=== PATIENT | female | born 1970 | race Caucasian/White ===

== ENCOUNTER → 2017-03-19 | Day surgery (SDC) | payer BC, OTHER ==
--- NOTE | 2017-03-20 05:28 | WWPCN ---
DATE OF SERVICE: 03/19/2017 PREPROCEDURE DIAGNOSIS: Dysfunctional uterine bleeding. POSTPROCEDURE DIAGNOSIS: Dysfunctional uterine bleeding. PROCEDURE: Endometrial biopsy. SURGEON: Dr. Ash. ANESTHESIA: None. BRIEF DESCRIPTION OF THE FINDINGS: The uterus is enlarged approximately 8-week size and consistent with a fibroid uterus. The uterus sounded to 10 cm. Moderate amount of tissue was obtained. BRIEF HISTORY AND INDICATIONS: This is a 46-year-old G2, P2 whose is status post vasectomy. Periods have become somewhat irregular and missed periods in September and November. She started her period on 03/01/17 which has gone on for about 2-1/2 weeks to the present day. It has been variable in flow and has been fairly light recently. The endometrial biopsy procedure was explained to the patient including risks and possible complications and all of her questions were answered. PROCEDURE: The patient was placed in the lithotomy position. Bimanual examination revealed an 8-week size firm, slightly irregular uterus consistent with fibroid uterus. The uterus was nontender and there was no cervical motion tenderness. Speculum was inserted into the vagina. The cervix and vagina were prepped with Betadine. An Allis clamp was used to grasp the anterior lip of the cervix and the endometrial biopsy instrument was placed to the fundus without difficulty. The uterus measured 10 cm. Negative pressure was applied and a back and forth rotating motion was used and a moderate amount of blood and tissue was obtained and sent for pathological examination. The instruments were removed. The patient tolerated the procedure well. The estimated blood loss for the procedure was 1 mL. There were no complications. Specimen sent included endometrial sampling. The post procedure blood pressure was 156/76 with a pulse of 73. The patient was feeling fine and discharge instructions were given to the patient. The patient was also given a prescription for Provera 10 mg and she will take 1 p.o. daily on days one through 12 of the month starting tomorrow. She will continue to keep a menstrual calendar and she will call if she has any problems.
== END ==
LOC: WWCWWP 11:51
PROVIDERS: ATTEND Obstetrics & Gynecology
DX: N93.8 Other specified abnormal uterine and vaginal bleeding (principal); N85.00 Endometrial hyperplasia, unspecified
CPT/HCPCS: 88305

== ENCOUNTER → 2017-10-01 | Outpatient (CLI) | payer BC ==
--- NOTE | 2017-10-01 09:51 | WWHP ---
[facility] - HISTORY AND PHYSICAL DATE OF SERVICE: 10/01/2017. CHIEF COMPLAINT: The patient is here for her routine gynecologic exam and mammogram. HPI: This is a 47-year-old, G2, P2, with an LMP of 09/27/2017. The patient's is status post vasectomy. The patient did have dysfunctional uterine bleeding earlier this year with a menstrual period that lasted nearly 3 weeks in February. She underwent an endometrial biopsy on 03/19/17, which showed disordered proliferative endometrium. She was started on cyclic Provera and has had fairly regular monthly periods lasting 4 to 7 days. She did not have a withdrawal bleed last month but did have a period this month. She would like to have a trial off of the cyclic Provera after she completes her prescription in 2 months. She has noticed occasional hot flashes over the last couple of months, but these have been infrequent. PAST MEDICAL HISTORY: Seasonal allergies. MEDICATIONS: 1. Multivitamin daily. 2. Provera 10 mg, days 1 through 12 of the month. 3. Cetirizine 10 mg daily. 4. Abcuts 1 daily for weight loss. ALLERGIES: PENICILLIN and LATEX. PAST SURGICAL HISTORY: Eye surgery in the past. 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 Hysteroscopy, D&C, and myomectomy in 2010. 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 SOCIAL HISTORY: She denies tobacco and drug use and has 0 to 2 alcohol-containing drinks per month. 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 FAMILY HISTORY: Mother had breast cancer. Father had diabetes. REVIEW OF SYSTEMS: She has lost about 16 pounds over the last year and this has been with diet and exercise. She is trying to lose weight for her her daughter's upcoming wedding next summer. She denies respiratory, cardiac or GI problems. PHYSICAL EXAM: Blood pressure 139/76, height 5 feet 7 inches, weight 173 pounds. BMI at 27. Temperature 97.2, pulse 79. This is a well-developed, well-nourished, white female, who is alert and oriented x3, in no acute distress. HEENT is within normal limits. NECK: Supple without mass or thyromegaly. CHEST AND LUNGS: Clear to auscultation. HEART: Regular rate and rhythm. Breasts are without mass or discharge. Axillary exam is negative for adenopathy. Back negative for CVA tenderness. ABDOMEN: Soft, nontender without palpable masses. PELVIC EXAM: External genitalia appears normal. The cervix and vagina reveal menstrual- type blood. Cervix is multiparous and normal-appearing. The uterus is approximately 8 week's size, firm and slightly irregular, consistent with a fibroid uterus. This is nontender. There are no palpable adnexal masses or tenderness. Rectal exam was refused by the patient. EXTREMITIES: Nontender. IMPRESSION: 1. A 47-year-old female with history of dysfunctional uterine bleeding, improved with cyclic progestin therapy. 2. Known multi-fibroid uterus, approximately 8 week's size. PLAN: 1. Pap smear was deferred since she had a normal one last year. 2. Self breast examination was discussed. 3. Mammogram will be done today. 4. We have had a long discussion regarding her history of dysfunctional uterine bleeding. She will continue the cyclic Provera for 2 more months and at that time she will have a trial off. She will continue to keep a menstrual calendar and call if she is having menstrual problems. 5. She will return in 1 year. MMODL / IJN: [id number] /
--- NOTE | 2017-10-02 12:33 | MM ---
Reason for exam: screening (asymptomatic). Last mammogram was performed 1 year and 1 month ago. History: Family history of breast cancer in mother at age 53. Taking progesterone for 5 months. Physical Findings: A clinical breast exam by your physician is recommended on an annual basis and results should be correlated with mammographic findings. MG Screening Mammo w CAD Bilateral CC and MLO view(s) were taken. Prior study comparison: August 27, 2016, bilateral MG screening mammo w CAD. August 22, 2015, bilateral MG screening mammo w CAD. The breast tissue is heterogeneously dense. This may lower the sensitivity of mammography. Finding: There is suspicious, equal, spiculated architectural distortion located 9 cm from the nipple in the upper quadrant, posterior position of the right breast on MLO view. New finding since August 27, 2016 and August 22, 2015. ASSESSMENT: Incomplete: need additional imaging evaluation, BI-RAD 0 RECOMMENDATION: Special view mammogram of the right breast. If lesion persists on supplemental views, image directed ultrasound is recommended. [facility] will attempt to contact patient to return for supplemental views and ultrasound if indicated.
== END | disposition home or self-care (01) ==
LOC: WWCWWP 08:29
PROVIDERS: ATTEND Obstetrics & Gynecology
DX: Z12.31 Encounter for screening mammogram for malignant neoplasm of breast (principal)

== ENCOUNTER → 2017-10-21 | Outpatient (CLI) | payer BC ==
--- NOTE | 2017-10-21 09:23 | MM ---
Reason for exam: additional evaluation requested from abnormal screening. Last mammogram was performed 1 month ago. History: Family history of breast cancer in mother at age 53. Taking progesterone for 5 months. Physical Findings: Nurse did not find any significant physical abnormalities on exam. MG Work Up Mamm w CAD RT Spot compression MLO and ML view(s) were taken of the right breast. Prior study comparison: October 01, 2017, bilateral MG screening mammo w CAD. August 27, 2016, bilateral MG screening mammo w CAD. The breast tissue is heterogeneously dense. This may lower the sensitivity of mammography. No suspicious abnormality in the right breast. The previously seen right superior breast posterior depth asymmetry resolves on spot compression view and appears as fibroglandular tissue. These results were verbally communicated with the patient and result sheet given to the patient on 10/21/17. ASSESSMENT: Negative, BI-RAD 1 RECOMMENDATION: Return to routine screening mammogram schedule for both breasts.
== END | disposition home or self-care (01) ==
LOC: RADMAMWWP 08:39
PROVIDERS: ATTEND Obstetrics & Gynecology
DX: R92.8 Other abnormal and inconclusive findings on diagnostic imaging of breast (principal)
CPT/HCPCS: 77065

== ENCOUNTER → 2018-10-27 | Outpatient (CLI) | payer BC ==
[2018-10-27 09:24] VITALS: BP 132/71; PULSE 78; RESP 18; TEMP 97.7; BMI 29.0
--- NOTE | 2018-10-27 10:13 | P.HPOB ---
History of Present Illness H&P Date: 10/27/18 Chief Complaint: The patient is here for her routine gynecologic exam and mammogram. This is a 48-year-old with an LMP of 10/17/2018. The patient states or periods have become less frequent. She did use cyclic Provera up until about 1 year ago. Menses have been about every one to 3 months and are now protective officer and shorter. She started having hot flashes in March 2018. They were fairly severe and are now improving. She is without gynecologic complaints. Review of Systems The patient has gained 7 pounds over the last year. She denies respiratory, cardiac, or G.I. problems. Past Medical History Past Medical History: No Reported History Additional Past Medical History / Comment(s): Seasonal allergies. 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 She has a history of uterine fibroids and his status post myomectomy in 2010. 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 - Past Family History Mother Family Medical History: Cancer (Breast cancer) Father Family Medical History: Diabetes Mellitus Medications and Allergies Home Medications Medication Instructions Recorded Confirmed Type Cetirizine HCl [Zyrtec] 10 mg PO DAILY 10/27/18 10/27/18 History Lysine [l-Lysine] 500 mg PO DAILY 10/27/18 10/27/18 History Multivitamins, Thera [Multivitamin 1 tab PO DAILY 10/27/18 10/27/18 History (formulary)] Allergies Allergy/AdvReac Type Severity Reaction Status Date / Time latex Allergy Rash/Hives Verified 10/27/18 09:28 Penicillins Allergy Unknown Verified 10/27/18 09:28 Childhood Exam Vital Signs Temp Pulse Resp BP Pulse Ox 10/27/18 09:13 97.7 F 78 18 132/71 98 Intake and Output 10/26/18 10/27/18 10/27/18 22:59 06:59 14:59 Other: Weight 81.647 kg Height 5'6", weight 180 pounds, BMI 29.1. This is a well-developed well-nourished white female who is alert and oriented times 3 in no acute distress. HEENT: Within normal limits. NECK: Supple without mass or thyromegaly. CHEST AND LUNGS: Clear to auscultation. HEART: Regular rate and rhythm. BREASTS: Are without mass or discharge. There is an area on the left breast at the 7 o'clock position with skin change similar to a birthmark that the patient states she has had since age 6. It measures approximately 2 cm in diameter and is flat. AXILLARY EXAM: Negative for adenopathy. BACK: Negative for CVA tenderness. ABDOMEN: Soft, nontender, without palpable masses. PELVIC EXAM: Normal external genitalia. Cervix and vagina appear normal. Cervix is multiparous. There is no unusual discharge. There is no evidence of prolapse. The uterus is midposition, multiparous, nongravid size and nontender. There are no palpable adnexal masses or tenderness. RECTAL EXAM: refused by the patient. EXTREMITIES: Nontender. IMPRESSION: 1. 48-year-old perimenopausal female with oligomenorrhea and vasomotor symptoms. 2. Normal gynecologic exam. PLAN: 1. Pap smear was performed. 2. Self breast awareness was discussed with the patient. 3. Screening mammogram will be done today. 4. Osteoporosis prevention was discussed. I have stressed the importance of adequate calcium, vitamin D and regular exercise. Recommended amounts of calcium and vitamin D were also discussed. 5. She will continue to keep a menstrual calendar. 6. She will return in one year.
--- NOTE | 2018-10-31 07:42 | MM ---
Reason for exam: screening (asymptomatic). Last mammogram was performed 1 year ago. History: Family history of breast cancer in mother at age 53. Taking progesterone for 5 months. MG Screening Mammo w CAD Bilateral CC and MLO view(s) were taken. Prior study comparison: October 21, 2017, right breast MG work up mamm w CAD RT. October 01, 2017, bilateral MG screening mammo w CAD. The breast tissue is heterogeneously dense. This may lower the sensitivity of mammography. Asymmetric breast tissue right stable from prior studies. No discrete abnormality. ASSESSMENT: Negative, BI-RAD 1 RECOMMENDATION: Routine screening mammogram of both breasts in 1 year.
== END | disposition home or self-care (01) ==
LOC: WWCWWP 09:08
PROVIDERS: ATTEND Obstetrics & Gynecology
DX: Z12.31 Encounter for screening mammogram for malignant neoplasm of breast (principal)
CPT/HCPCS: 77067

== ENCOUNTER → 2021-01-23 | Outpatient (CLI) | payer BC ==
[2021-01-23 16:12] VITALS: BP 147/77; PULSE 76; RESP 18; TEMP 98.4
--- NOTE | 2021-01-23 17:54 | P.HPOB ---
History of Present Illness H&P Date: 01/23/21 Chief Complaint: The patient is here for her routine gynecologic exam. This is a 50-year-old with an LMP of 11/21/2020. She has had only 3 menstrual periods over the past year and she had gone about 9 months without a menstrual period prior to her LMP. Her LMP was short lasting only 3 days. She states she is in the process of filing for divorce because of this spousal infidelity. She had a Pap smear in 2018 that was positive for high-risk HPV that led to a colposcopy which revealed high-grade changes and she did have a LEEP at that time. She believes the spousal infidelity probably started around that time. She states she caught her with an another woman in September 2020. She states she recently has become sexually active with another man during the past 2 months. They have mostly had non-penetration sexual activity, but have infrequently had sexual intercourse where withdrawal was used. She states she has a latex sensitivity and for this reason did not use condoms. She is requesting STD testing. She denies vaginal discharge or genita l lesions. She has had occasional mild hot flashes. Review of Systems The patient's weight has been stable over the last year. She denies respiratory, cardiac, or G.I. problems. Past Medical History Past Medical History: No Reported History Additional Past Medical History / Comment(s): Seasonal allergies. 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 She has a history of uterine fibroids and his status post myomectomy in 2010. 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 Past Anesthesia/Blood Transfusion Reactions: No Reported Reaction Past Psychological History: Anxiety, Depression Additional Psychological History / Comment(s): no treatment Smoking Status: Never smoker Past Alcohol Use History: Occasional (0-2 every 3 months) Past Drug Use History: None Reported Additional History: She is currently filing for divorce and has had a new boyfriend since November 2020. 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 - Past Family History Mother Family Medical History: Cancer Additional Family Medical History / Comment(s): Breast cancer. Father Family Medical History: Diabetes Mellitus Medications and Allergies Home Medications Medication Instructions Recorded Confirmed Type Cetirizine HCl [Zyrtec] 10 mg PO DAILY 10/27/18 01/23/21 History Lysine [l-Lysine] 500 mg PO DAILY 10/27/18 01/23/21 History Multivitamins, Thera [Multivitamin 1 tab PO DAILY 10/27/18 01/23/21 History (formulary)] Calcium Carbonate [Calcium] 600 mg PO DAILY 01/23/21 01/23/21 History Allergies Allergy/AdvReac Type Severity Reaction Status Date / Time latex Allergy Rash/Hives Verified 01/23/21 16:07 Penicillins Allergy Unknown Verified 01/23/21 16:07 Childhood Exam Vital Signs Temp Pulse Resp BP Pulse Ox 01/23/21 16:09 98.4 F 76 18 147/77 100 Intake and Output 01/23/21 01/23/21 01/23/21 06:59 14:59 22:59 Other: Weight 81.647 kg Height 5 feet 6 inches, weight 180 pounds, BMI 29.1. This is a well-developed well-nourished white female who is alert and oriented times 3 in no acute distress. HEENT: Within normal limits. NECK: Supple without mass or thyromegaly. CHEST AND LUNGS: Clear to auscultation. HEART: Regular rate and rhythm. BREASTS: Are without mass or discharge. AXILLARY EXAM: Negative for adenopathy. BACK: Negative for CVA tenderness. ABDOMEN: Soft, nontender, without palpable masses. PELVIC EXAM: Normal external genitalia with minimal atrophy. Cervix and vagina appear normal with minimal atrophy. The cervix is without lesions and is multiparous in size with a fairly small opening consistent with a previous LEEP procedure. There is no unusual discharge. There is no evidence of prolapse. The uterus is slightly retroverted, nongravid size and nontender. There are no palpable adnexal masses or tenderness. RECTAL EXAM: Rectal exam was refused by the patient. EXTREMITIES: Nontender. IMPRESSION: 1. 50-year-old perimenopausal female with oligomenorrhea and occasional mild vasomotor symptoms with normal gynecologic exam. 2. Status post LEEP procedure for high-grade JOSE LUIS in 2019. Her most recent Pap smear on 08/25/2019 showed ASCUS. 3. Spousal infidelity and now the patient is filing for divorce and has a new sexual partner. 4. Elevated blood pressure. PLAN: 1. Pap smear cotest was performed. 2. Self breast awareness was discussed with the patient. 3. Screening mammogram is due and she has an appointment next month for this. The order slip will be mailed to the patient for this. 4. Trichomonas Ag testing was obtained from the vagina. GC and Chlamydia testing was obtained from the cervix. The order slip for STD blood testing was given to the patient and this includes HIV, RPR, hepatitis B surface antigen, and hepatitis C antibody. 5. STD prevention was discussed with the patient. I have stressed the importance of limiting sexual partners and I have recommended that she use condoms if she is sexually active. We have discussed the availability of nonlatex condoms. 6. She understands there is a risk of her becoming if she still has menstrual periods and for this reason I have recommended that she use condoms. 7. She will continue to keep a menstrual calendar and call if she is having menstrual problems. 8. I have recommended that she check her own blood pressure at home on a regular basis and follow up with her PCP for blood pressure elevations. 9. She was advised to return in one year for her annual well woman exam and as needed.
--- NOTE | 2021-02-06 18:19 | P.PN ---
Progress Note - Text Progress Note Date: 02/06/21 OUTPATIENT FOLLOW-UP NOTE TEST(S)/RESULTS: Test results from 01/23/2021 include negative Pap smear and negative high-risk HPV testing. The Pap smear showed a shift in the vaginal michelle suggestive of bacterial vaginosis. Other STD testing included negative testing for Trichomonas, gonorrhea, chlamydia, HIV, RPR, hepatitis B surface antigen and hepatitis C antibody. METHOD OF NOTIFICATION: She was notified by phone. PATIENT COMMENTS: The patient denies BV symptoms such as vaginal discharge or odor. DIAGNOSIS: Negative Pap smear cotest. Negative STD screening as above. No symptoms for bacterial vaginosis. DISCUSSION: I have used the ASCCP algorithm to determine the next step in cervical surveillance and screening. Recommendation was not available since the indicated that colposcopy was indicated after the post-LEEP Pap smear which showed ASCUS. This was not done by Dr. Vasquez after he did the post LEEP procedure Pap smear in 2019. Given the length of time that has passed and the negative Pap smear cotest, I do not feel colposcopy is indicated at this time. We will plan on repeating the Pap smear cotest again in approximately 2 years. If that is normal, we'll consider resuming routine screening. PLAN: As above. The patient was also instructed to call if she develops any BV symptoms such as vaginal discharge or odor. She was advised to return in one year for her annual well woman exam.
== END | disposition home or self-care (01) ==
LOC: WWCWWP 15:36
PROVIDERS: ATTEND Obstetrics & Gynecology
DX: N91.5 Oligomenorrhea, unspecified (principal); F32.9 Major depressive disorder, single episode, unspecified; R03.0 Elevated blood-pressure reading, without diagnosis of hypertension; Z98.890 Other specified postprocedural states; Z53.9 Procedure and treatment not carried out, unspecified reason

== ENCOUNTER → 2021-01-26 | Outpatient (CLI) | payer BC ==
[2021-01-26 14:39] LABS: HIV 2 AB Non-Reactive (Non-Reactive); HIV AB P24 Non-Reactive (Non-Reactive); HIV P24 AG Non-Reactive (Non-Reactive)
[2021-01-26 15:29] LABS: Hepatitis B Surface Antigen Non-Reactive (Non-Reactive); Hepatitis C IgG Antibody Non-Reactive (Non-Reactive)
== END | disposition home or self-care (01) ==
LOC: LABWHC1 07:30
PROVIDERS: ATTEND Obstetrics & Gynecology
DX: Z11.3 Encounter for screening for infections with a predominantly sexual mode of transmission (principal)
CPT/HCPCS: 36415; 86780; 86803; 87340; 87390

== ENCOUNTER → 2021-02-27 | Outpatient (CLI) | payer BC ==
--- NOTE | 2021-02-28 13:32 | MM ---
Reason for exam: screening (asymptomatic). Last mammogram was performed 2 years and 4 months ago. History: Family history of breast cancer in mother at age 53. Took progesterone for 5 months. Physical Findings: A clinical breast exam by your physician is recommended on an annual basis and results should be correlated with mammographic findings. MG Screening Mammo w CAD Bilateral CC and MLO view(s) were taken. Prior study comparison: October 27, 2018, bilateral MG screening mammo w CAD. October 21, 2017, right breast MG work up mamm w CAD RT. The breast tissue is heterogeneously dense. This may lower the sensitivity of mammography. There is no discrete abnormality. ASSESSMENT: Negative, BI-RAD 1 RECOMMENDATION: Routine screening mammogram of both breasts in 1 year.
== END ==
LOC: WWCWWP 13:36
PROVIDERS: ATTEND Obstetrics & Gynecology
DX: Z12.31 Encounter for screening mammogram for malignant neoplasm of breast (principal); Z88.0 Allergy status to penicillin; Z91.040 Latex allergy status
CPT/HCPCS: 77067

== ENCOUNTER → 2022-09-25 | Outpatient (CLI) | payer BC ==
[2022-09-25 08:51] VITALS: BP 127/87; PULSE 74; RESP 17; TEMP 97.9
--- NOTE | 2022-09-25 09:37 | P.HPOB ---
History of Present Illness H&P Date: 09/25/22 Chief Complaint: The patient is here for her routine gynecologic exam and ma mmogram. This is a 52-year-old with an LMP of November 2020. The patient denies any menstrual periods since her last well woman examination. She does experience some hot flashes especially when she eats more sugar. She has a history of GOLD-2 of the cervix status post LEEP procedure on 12/29/2018 which had low-grade changes to the external margins. The LEEP was done after an abnormal Pap smear in 2019 showing ASCUS with positive high-risk HPV testing. Pap smear was done on 08/25/2019 after the LEEP and showed ASCUS. Dr. Vasquez's plan was to repeat the Pap smear in 6 months. The patient did not do the repeat Pap in 6 months and her next Pap smear on 01/23/2021 was negative with negative high-risk HPV testing. She states her first was unfaithful and they have since gotten a divorce. The patient remarried in May 2022. She states she is much happier with this relationship. Review of Systems The patient has lost 2 pounds over the last year. She denies respiratory, cardiac, or G.I. problems. She has been having some mild anxiety and she does deep breathing for this and has not required medication. Past Medical History Past Medical History: No Reported History Additional Past Medical History / Comment(s): Seasonal allergies. 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 She has a history of uterine fibroids and his status post myomectomy in 2010. LEEP of Cx in 2019 for GOLD II. 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 LEEP procedure of the cervix in 2019. Past Anesthesia/Blood Transfusion Reactions: No Reported Reaction Past Psychological History: Anxiety, Depression Additional Psychological History / Comment(s): no treatment Smoking Status: Never smoker Past Alcohol Use History: Occasional (2 per month) Past Drug Use History: None Reported Additional History: She has been since May 2022 and this is her second marriage. - Past Family History Mother Family Medical History: Cancer Additional Family Medical History / Comment(s): Breast cancer. Father Family Medical History: Diabetes Mellitus, Hypertension Medications and Allergies Home Medications Medication Instructions Recorded Confirmed Type Cetirizine HCl [Zyrtec] 10 mg PO DAILY 10/27/18 09/25/22 History Lysine [l-Lysine] 500 mg PO DAILY 10/27/18 09/25/22 History Multivitamins, Thera [Multivitamin 1 tab PO DAILY 10/27/18 09/25/22 History (formulary)] Calcium Carbonate [Calcium] 600 mg PO DAILY 01/23/21 09/25/22 History Allergies Allergy/AdvReac Type Severity Reaction Status Date / Time latex Allergy Rash/Hives Verified 09/25/22 08:46 Penicillins Allergy Unknown Verified 09/25/22 08:46 Childhood Exam Vital Signs Temp Pulse Resp BP Pulse Ox 09/25/22 08:48 97.9 F 74 17 127/87 96 Intake and Output 09/24/22 09/25/22 09/25/22 22:59 06:59 14:59 Other: Weight 82.554 kg Height 5 feet 5 inches, weight 182 pounds, BMI 30.3. This is a well-developed well-nourished white female who is alert and oriented times 3 in no acute distress. HEENT: Within normal limits. NECK: Supple without mass or thyromegaly. CHEST AND LUNGS: Clear to auscultation. HEART: Regular rate and rhythm. BREASTS: Are without mass or discharge. AXILLARY EXAM: Negative for adenopathy. BACK: Negative for CVA tenderness. ABDOMEN: Soft, nontender, without palpable masses. PELVIC EXAM: Normal external genitalia with minimal atrophy. Cervix and vagina appear normal with minimal atrophy. There is no unusual discharge. There is no evidence of prolapse. The uterus is midposition, nongravid size and nontender. There are no palpable adnexal masses or tenderness. RECTAL EXAM: Refused by the patient. EXTREMITIES: Nontender. IMPRESSION: 1. 52-year-old menopausal female with normal gynecologic exam. 2. Status post LEEP procedure of the cervix in 2019 for GOLD-2. Pap smear on 08/25/2019 showed ASCUS and her last Pap smear cotest on 01/23/2021 was negative. PLAN: 1. Pap smear cotest was performed. 2. Self breast awareness was discussed with the patient. We have also discussed symptoms associated with inflammatory breast cancer. 3. Screening mammogram will be done today. 4. Osteoporosis prevention was discussed. I have stressed the importance of adequate calcium, vitamin D and regular exercise. Recommended amounts of calcium and vitamin D were also discussed. 5. The patient has not had a Covid vaccination, but she has had Covid in the past. She understands a Covid vaccination may increase her protection against Covid. She will consider this. 6. She was advised to return in one year for her annual well woman exam.
--- NOTE | 2022-09-26 09:01 | MM ---
Reason for Exam: Screening (asymptomatic). Last mammogram was performed 1 year(s) and 7 month(s) ago. Patient History: Menarche at age 11. First Full-Term at age 19. Postmenopausal. Patient has history of breast feeding. Progesterone for 5 months. Mother had breast cancer, age 53. Risk Values: Dedra 5 year model risk: 2.1%. NCI Lifetime model risk: 15.7%. Prior Study Comparison: 10/01/2017 Bilateral Screening Mammogram, [facility]. 10/21/2017 Right Diagnostic Mammogram, [facility]. 10/27/2018 Bilateral Screening Mammogram, [facility]. 02/27/2021 Bilateral Screening Mammogram, [facility]. Tissue Density: There are scattered fibroglandular densities. Findings: Analyzed By CAD. There is no suspicious group of microcalcifications or new suspicious mass in either breast. Overall Assessment: Negative, BI-RAD 1 Management: Screening Mammogram of both breasts in 1 year. A clinical breast exam by your physician is recommended on an annual basis and results should be correlated with mammographic findings. Electronically signed and approved by: Robbie Bennett M.D. Radiologis
== END ==
LOC: WWCWWP 08:38
PROVIDERS: ATTEND Obstetrics & Gynecology
DX: Z01.419 Encounter for gynecological examination (general) (routine) without abnormal findings (principal); Z13.1 Encounter for screening for diabetes mellitus; Z98.890 Other specified postprocedural states; Z91.040 Latex allergy status; Z88.0 Allergy status to penicillin
CPT/HCPCS: 77067

== ENCOUNTER → 2024-04-21 | Outpatient (CLI) | payer BC ==
[2024-04-21 09:17] VITALS: BP 127/83; PULSE 82; RESP 17; TEMP 98.8
--- NOTE | 2024-04-21 10:04 | P.HPOB ---
History of Present Illness H&P Date: 04/21/24 Chief Complaint: The patient is here for her routine gynecologic exam and ma mmogram. This is a 53-year-old with an LMP of 2020. Patient is without gynecologic complaints and denies any postmenopausal bleeding. She has a history of cervical dysplasia. She is status post LEEP procedure by Dr. Vasquez on 12/29/2018 following an ASCUS Pap smear with positive high-risk HPV testing. The LEEP procedure in 2019 showed GOLD 2 with low-grade changes to the external sara n. Pap smear done on 08/25/2019 after the LEEP procedure showed ASCUS. Dr. Vasquez recommended repeating the Pap smear in 6 months. She did not repeat the Pap smear in 6 months and the next Pap smear cotest was done on 01/23/2021 and was negative. On 09/25/2022 the Pap smear cotest was again negative. The patient discovered her ex- was unfaithful and the positive HPV test in 2019 was her first indication of this. She states she is now happily remarried since 2021. Review of Systems The patient has gained 16 pounds over the last year. She denies respiratory, cardiac, or G.I. problems. Past Medical History Past Medical History: No Reported History Additional Past Medical History / Comment(s): Seasonal allergies. 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 She has a history of uterine fibroids and his status post myomectomy in 2010. LEEP of Cx in 2019 for GOLD II. 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 LEEP procedure of the cervix in 2019. Past Anesthesia/Blood Transfusion Reactions: No Reported Reaction Past Psychological History: Anxiety, Depression Additional Psychological History / Comment(s): no treatment Smoking Status: Never smoker Past Alcohol Use History: Occasional Past Drug Use History: None Reported - Past Family History Mother Family Medical History: Cancer Additional Family Medical History / Comment(s): Breast cancer. Father Family Medical History: Diabetes Mellitus, Hypertension Additional Family Medical History / Comment(s): . Medications and Allergies Home Medications Medication Instructions Recorded Confirmed Type Cetirizine HCl [Zyrtec] 10 mg PO DAILY 10/27/18 09/25/22 History Lysine [l-Lysine] 500 mg PO DAILY 10/27/18 09/25/22 History Multivitamins, Thera [Multivitamin 1 tab PO DAILY 10/27/18 09/25/22 History (formulary)] Calcium Carbonate [Calcium] 600 mg PO DAILY 01/23/21 09/25/22 History Allergies Allergy/AdvReac Type Severity Reaction Status Date / Time latex Allergy Rash/Hives Verified 04/21/24 09:13 Penicillins Allergy Unknown Verified 04/21/24 09:13 Childhood Exam Vital Signs Temp Pulse Resp BP Pulse Ox 04/21/24 09:15 98.8 F 82 17 127/83 96 Intake and Output 04/20/24 04/21/24 04/21/24 22:59 06:59 14:59 Other: Weight 89.811 kg Height 5 feet 5 inches, weight 198 pounds, BMI 32.9. This is a well-developed well-nourished white female who is alert and oriented times 3 in no acute distress. HEENT: Within normal limits. NECK: Supple without mass or thyromegaly. CHEST AND LUNGS: Clear to auscultation. HEART: Regular rate and rhythm. BREASTS: Are without mass or discharge. AXILLARY EXAM: Negative for adenopathy. BACK: Negative for CVA tenderness. ABDOMEN: Soft, nontender, without palpable masses. PELVIC EXAM: Normal external genitalia with minimal atrophy. Cervix and vagina appear normal with minimal atrophy. There is no unusual discharge. There is no evidence of prolapse. The uterus is midposition, nongravid size and nontender. There are no palpable adnexal masses or tenderness. RECTAL EXAM: Refused by the patient. EXTREMITIES: Nontender. IMPRESSION: 1. 53-year-old menopausal female with normal gynecologic exam. 2. Status post LEEP procedure of the cervix in 2019 for GOLD-2. She has had 2 consecutive negative Pap smear cotests in 2020 and 2021. PLAN: 1. Pap smear cotest was performed. If this is negative, we will consider spacing Pap smear cotest to every 2 to 3 years. 2. Self breast awareness was discussed with the patient. We have also discussed symptoms associated with inflammatory breast cancer. 3. Screening mammogram will be done today. 4. Osteoporosis prevention was discussed. I have stressed the importance of adequate calcium, vitamin D and regular exercise. Recommended amounts of calcium and vitamin D were also discussed. 5. Colorectal cancer screening was discussed. The patient has refused rectal examination today. We have discussed options for colorectal cancer screening including colonoscopy and Cologuard testing. She will further discuss these options with her PCP. 6. Weight control was discussed. We have discussed the importance of good nutrition, regular meals, adequate fiber and regular exercise. 7. She was advised to return in one year for her annual well woman exam.
== END ==
LOC: WWCWWP 09:00
PROVIDERS: ATTEND Obstetrics & Gynecology
DX: Z12.31 Encounter for screening mammogram for malignant neoplasm of breast (principal); Z78.0 Asymptomatic menopausal state; Z98.890 Other specified postprocedural states; Z80.3 Family history of malignant neoplasm of breast; Z87.410 Personal history of cervical dysplasia; Z88.0 Allergy status to penicillin; Z91.040 Latex allergy status
CPT/HCPCS: 77067